=== PATIENT | female | born 1990 | race Caucasian/White ===

== ENCOUNTER 2019-02-07 22:03 | Emergency (ER) | payer SELFPAY ==
[~2019-02-07] VITALS: Ht 160 cm; Wt 81.6 kg
[2019-02-07 22:46] VITALS: BP_SYST 159
[2019-02-07] MEDS ORDERED: IBUPROFEN 800 MG TABLET PO ONE (23:45)
[2019-02-07] MEDS ORDERED: AMOXICILLIN 500 MG CAPSULE PO ONE (23:45)
[2019-02-07 23:50] VITALS: BP_SYST 123
== END 2019-02-07 23:50 | disposition home or self-care (01) ==
LOC: SED 22:03
DX: K04.7 Periapical abscess without sinus (principal)
CPT/HCPCS: 99283

== ENCOUNTER 2019-03-04 13:22 | Emergency (ER) | payer MEDICAID ==
[~2019-03-04] VITALS: Ht 162.6 cm; Wt 81.6 kg
[2019-03-04 13:28] VITALS: BP_SYST 141
[2019-03-04 14:10] VITALS: BP_SYST 141
== END 2019-03-04 14:10 | disposition home or self-care (01) ==
LOC: SED 13:22
DX: G56.03 Carpal tunnel syndrome, bilateral upper limbs (principal)
CPT/HCPCS: 99283

== ENCOUNTER 2019-05-13 17:34 | Emergency (ER) | payer SELFPAY ==
[~2019-05-13] VITALS: Ht 167.6 cm; Wt 108.9 kg
[2019-05-13 17:45] VITALS: BP_SYST 138
[2019-05-13] MEDS ORDERED: NACL 0.9% 1,000 ML IV ONE (17:58)
[2019-05-13] MEDS ORDERED: ONDANSETRON HCL 4 MG/2 ML VIAL IVP ONE (18:00)
[2019-05-13] MEDS ORDERED: DIPHENHYDRAMINE INJ 50 MG/ML VIAL IVP ONE (18:00)
[2019-05-13 18:18] LABS: BILIRUBIN,URINE NEGATIVE (NEGATIVE); CLARITY/URINE HAZY (CLEAR); COLOR,URINE YELLOW (YELLOW); GLUCOSE,URINE NEGATIVE (NEGATIVE); KETONES,URINE NEGATIVE (NEGATIVE); LEUKOCYTE ESTERASE ,URINE NEGATIVE (NEGATIVE); NITRITE, URINE NEGATIVE (NEGATIVE); PH,URINE 5.5 (5.0-8.0); PROTEIN URINE 2+ (NEGATIVE); UROBILINOGEN,URINE 0.2 (0.2-1.0)
[2019-05-13 18:19] LABS: BASOPHILS % (AUTO) 0.2 % (0.0-2.0); EOSINOPHILS % (AUTO) 0.6 % (0.0-4.0); HEMATOCRIT 42.1 % (36-48); HEMOGLOBIN 14.4 g/dL (12.0-16.0); LYMPHOCYTES # (AUTO) 1.4 K/uL (1.0-5.5); LYMPHOCYTES % (AUTO) 17.6 % (20.5-51.5); MEAN CORPUSCULAR HEMOGLOBIN 30 pg (27-31); MEAN CORPUSCULAR HGB CONC 34 % (32-36); MEAN CORPUSCULAR VOLUME 87 fL (79.0-98.0); MONOCYTES # (AUTO) 0.7 K/uL (0.0-1.0); MONOCYTES % (AUTO) 8.7 % (1.7-9.3); NEUTROPHILS # (AUTO) 5.8 K/uL (1.8-7.7); NEUTROPHILS % (AUTO) 72.9 % (40.0-70.0); PLATELET COUNT (AUTO) 363 K/uL (130-430); RED BLOOD CELL COUNT(AUTO) 4.83 MIL/uL (4.2-6.2); RED CELL DISTRIBUTION WIDTH 12.6 % (9.0-15.0); WHITE BLOOD COUNT (AUTO) 7.9 K/uL (4.8-10.8)
[2019-05-13 18:19] LABS: BLOOD, URINE TRACE (NEGATIVE)
[2019-05-13] MEDS ORDERED: Tylenol PM PO (18:26)
[2019-05-13] MEDS ORDERED: GLUXR500 PO (18:26)
[2019-05-13] MEDS ORDERED: IBUP-1969 PO (18:26)
[2019-05-13 18:29] LABS: BACTERIA,URINE MODERATE /HPF (None Seen); RBC,URINE 0-3 /HPF (0-3); WBC,URINE 0-3 /HPF (0-3)
[2019-05-13 18:30] LABS: MUCUS,URINE None Seen /LPF (None Seen)
[2019-05-13 18:31] LABS: CALCIUM 9.2 mg/dL (8.4-11.0); CREATININE 0.84 mg/dL (0.55-1.30)
[2019-05-13 18:33] LABS: POTASSIUM 2.9 mmol/L (3.5-5.1)
[2019-05-13 18:39] LABS: TOTAL BILIRUBIN 0.5 mg/dL (0.0-1.0)
[2019-05-13 18:40] LABS: ALBUMIN 3.3 g/dL (3.4-4.8)
[2019-05-13] MEDS ORDERED: POTASSIUM CHLORIDE 20 MEQ/PKT PACKET PO ONE (19:15)
[2019-05-13] MEDS ORDERED: MAG HYDROX/AL HYDROX/SIMETH 30 ML, DICYCLOMINE HCL 20 MG, LIDOCAINE VISCOUS 2% 15ML (PO... PO ONE ×3 (19:15)
[2019-05-13 19:25] VITALS: BP_SYST 129
== END 2019-05-13 19:35 | disposition home or self-care (01) ==
LOC: SED 17:34
DX: K52.9 Noninfective gastroenteritis and colitis, unspecified (principal); K31.84 Gastroparesis; E87.6 Hypokalemia; Z79.899 Other long term (current) drug therapy
CPT/HCPCS: 36415; 74018; 80053; 81000; 81025; 83690; 85025; 87086; 96361; 96374; 96375; 99284; J1200; J2001; J2405; J7030